=== PATIENT | female | born 1980 | race Caucasian/White ===

== ENCOUNTER → 2019-07-09 08:10 | Outpatient (CLI) | payer OTHER, SELFPAY ==
--- NOTE | ~2019-07-09 | US_ITS ---
EXAMINATION: US transvaginal DATE: 07/09/2019 08:32 INDICATION: Right lower quadrant pain TECHNIQUE: Multiple endovaginal sonographic images of the pelvis were obtained. COMPARISON: 07/23/2018 FINDINGS: The uterus measures 7.4 x 3.7 x 5.1 cm. The endometrial complex measures 11 mm. The right o vary measures 1.3 x 1.5 x 1.5 cm. The left ovary measures 4.9 x 3.5 x 4.1 cm. There is a 2.6 x 2.4 x 2.5 cm anechoic and hypoechoic lesion of the left ovary with no internal vascularity, most consistent with a hemorrhagic cyst. There is normal vascular flow in the ovaries. There is no free fluid in the pelvis. IMPRESSION: 1. No sonographic correlate for the patient's symptoms. Reviewed, dictated and finalized at location A. WORKER
== END ==
PROVIDERS: Visit Provider Obstetrics & Gynecology
DX: N83.202 Unspecified ovarian cyst, left side (principal); R10.31 Right lower quadrant pain
CPT/HCPCS: 76830

== ENCOUNTER 2019-07-29 11:50 | Outpatient (CLI) | payer OTHER, SELFPAY ==
--- NOTE | ~2019-07-29 | MMUS_ITS ---
CORRECTED REPORT MM diagnostic RT added to report. 08/02/19 sef EXAMINATION: MM screen RT diag LT w lakeisha, US breast BI complete, MM diagnostic RT HISTORY: Left breast lump TECHNIQUE: ML, MLO and cc 3-D full-field and spot tomosynthesis images of both breasts were performed and synthetic 2-D images were generated. CAD analysis was submitted and interpreted. High resolution bilateral complete breast ultrasound was performed. COMPARISON: None BREAST PARENCHYMAL COMPOSITION: The breasts are heterogeneously dense, which may obscure small masses. FINDINGS: MAMMOGRAPHIC FINDINGS: There is an approximately 2 cm mass in the upper outer quadrant of the left breast. Additional bilateral breast masses may be present are partially obscured by surrounding heterogeneously dense stroma. Bilateral complete breast ultrasound examination therefore was performed. ULTRASOUND: Very dense breast tissue is noted sonographically. Right breast 9:00 5 cm from nipple: 6 x 6 x 9 mm sonolucency with through transmission posterior enhancement, consistent with simple cyst Left breast 2-3:00 6 7 m from nipple: Circumscribed parallel hypoechoic solid lesion measuring 18.5 x 12 x 18 mm, with through transmission, posterior enhancement, likely a benign fibroadenoma. No suspicious solid lesion or shadowing of either breast is evident sonographically. IMPRESSION: 1. Likely benign 18.5 x 12 x 18 mm left breast fibroadenoma at 2-3:00 2. 6 month diagnostic left mammogram and targeted left breast ultrasound follow- up are recommended. BI-RADS category 3, probably benign findings. Reviewed, dictated and finalized at location A. INE OVERHAULER MTDD IMPRESSION: 1. Likely benign 18.5 x 12 x 18 mm left breast fibroadenoma at 2-3:00 2. 6 month diagnostic left mammogram and targeted left breast ultrasound follow -up are recommended. BI-RADS category 3, probably benign findings.
== END 2019-07-29 11:51 | disposition home or self-care (01) ==
PROVIDERS: PCP Family Medicine; Visit Provider Obstetrics & Gynecology
DX: Z12.31 Encounter for screening mammogram for malignant neoplasm of breast (principal); N63.20 Unspecified lump in the left breast, unspecified quadrant; R92.8 Other abnormal and inconclusive findings on diagnostic imaging of breast
CPT/HCPCS: 76641; 77063; 77065; 77067

== ENCOUNTER 2020-02-21 10:59 | Outpatient (CLI) | payer OTHER, SELFPAY ==
--- NOTE | ~2020-02-21 | MMUS_ITS ---
EXAMINATION: MM diagnostic gary LT w lakeisha, US breast LT limited HISTORY: Six-month follow-up for probably benign left breast mass TECHNIQUE: Craniocaudal, mediolateral, and mediolateral oblique 3-D tomosynthesis images of the left breast were performed and synthetic 2-D images were generated. CAD analysis was submitted and interpr eted. High resolution limited left breast ultrasound was performed. COMPARISON: 07/29/2019 BREAST PARENCHYMAL COMPOSITION: The breasts are heterogeneously dense, which may obscure small masses . FINDINGS: MAMMOGRAPHIC FINDINGS: There is a 2.8 cm obscured equal density mass in the middle/posterior third of the outer breast at th e 2:00 location 5 cm from the nipple which previously measured 2.2 cm. In addition, there is a 2.5 cm oval, obscured mass more medially in the breast at the 2:00 location 6 cm from the nipple. No suspic ious architectural distortion or calcification are identified. ULTRASOUND: There is a 2.8 x 1.5 cm oval, circumscribed, parallel, hypoechoic mass at the 2:00 location 5 cm from the nipple which is increased in size, previously measuring 2 cm. There is a 2.4 cm cyst at the 2:00 location near the nipple. Also seen are cysts measuring up to 7 mm at the 1:00 location near the nip ple. IMPRESSION: 1. 2.8 cm left breast mass with interval enlargement. 2. Ultrasound-guided biopsy is recommended. BI-RADS category 4, suspicious findings. Reviewed, dictated and finalized at location A. IMPRESSION: 1. 2.8 cm left breast mass with interval enlargement. 2. Ultrasound-guided biopsy is recommended. BI-RADS category 4, suspicious findings.
== END 2020-02-21 11:00 | disposition home or self-care (01) ==
PROVIDERS: Visit Provider Obstetrics & Gynecology
DX: R92.8 Other abnormal and inconclusive findings on diagnostic imaging of breast (principal)
CPT/HCPCS: 76642; 77061; 77065; G0279

== ENCOUNTER → 2022-07-17 07:43 | Outpatient (CLI) | payer OTHER, SELFPAY ==
--- NOTE | ~2022-07-17 | XR_ITS ---
XR_[id number]_CR 07/17/2022 08:16 Indication: Neck pain. Procedure: 3 views of the cervical spine Comparison: No prior studies for comparison. Findings: Normal cervical alignment. T1 not well visualized on the lateral view. No fracture or traum atic malalignment. No prevertebral soft tissue swelling. Odontoid process is normal. Lung apices are unremarkable. Impression: 1: No significant abnormality of the cervical spine. Reviewed, dictated and finalized at location L. NG END TRIMMER Impression: 1: No significant abnormality of the cervical spine.
== END ==
DX: G44.219 Episodic tension-type headache, not intractable (principal); M54.2 Cervicalgia
CPT/HCPCS: 72040

== ENCOUNTER 2022-07-31 07:57 | Outpatient (CLI) | payer OTHER, SELFPAY ==
--- NOTE | ~2022-07-31 | MM_ITS ---
EXAMINATION: MM screening [facility] BI w lakeisha HISTORY: Screening mammogram TECHNIQUE: Craniocaudal and mediolateral oblique 3-D tomosynthesis images were obtained and synthetic 2-D images were generated. CAD analysis was submitted and interpreted. COMPARISON: 02/21/2020, 07/29/2019 BREAST PARENCHYMAL COMPOSITION: The breasts are heterogeneously dense, which may obscure small masses . FINDINGS: RIGHT BREAST: There is an obscured mass in the middle third of the central breast. LEFT BREAST: There is a stable 3 cm mass in the upper outer quadrant of the breast. No suspicious mas s, calcification, or architectural distortion are identified to suggest malignancy. There has been no suspicious interval change. IMPRESSION: 1. Right breast mass. 2. Additional mammographic views and possible breast ultrasound are recommended. BI-RADS Category 0: Incomplete: Needs additional imaging evaluation. Reviewed, dictated and finalized at location A. R CUTTING MACHINE OPERATOR IMPRESSION: 1. Right breast mass. 2. Additional mammographic views and possible breast ultrasound are recommended . BI-RADS Category 0: Incomplete: Needs additional imaging evaluation.
== END 2022-07-31 07:58 | disposition home or self-care (01) ==
PROVIDERS: Visit Provider Obstetrics & Gynecology Gynecology
DX: Z12.31 Encounter for screening mammogram for malignant neoplasm of breast (principal); R92.8 Other abnormal and inconclusive findings on diagnostic imaging of breast
CPT/HCPCS: 77063; 77067

== ENCOUNTER 2022-08-19 11:33 | Outpatient (CLI) | payer OTHER, SELFPAY ==
--- NOTE | ~2022-08-19 | MMUS_ITS ---
EXAMINATION: MM diagnostic gary RT w lakeisha, US breast RT complete HISTORY: Follow-up right breast mass TECHNIQUE: Additional 3-D tomosynthesis images of the right breast were performed and synthetic 2-D i mages were generated. CAD analysis was submitted and interpreted. High resolution complete right [address] ultrasound was performed. COMPARISON: Comparison to multiple prior studies sequentially, with oldest reviewed study dated 10/2019. BREAST PARENCHYMAL COMPOSITION: The breasts are heterogeneously dense, which may obscure small masses FINDINGS: MAMMOGRAPHIC FINDINGS: There are ill-defined masses located centrally in the right breast, obscured by overlying dense fibro glandular tissue. There are no suspicious calcifications or architectural distortion. ULTRASOUND: Complete US of all 4 quadrants of the right breast and retroareolar region was reviewed. There are mu ltiple cysts in the right breast at 10-12:00, 1 cm from the nipple, 7:00, 2 cm from the nipple and 9: 00, 3 cm from the nipple. The largest is located at T10-12 o'clock measuring 6.2 cm. No suspicious ma sses to suggest malignancy. IMPRESSION: 1. Multiple simple cysts of the right breast corresponding to the masses seen on mammography, largest measuring 6.2 cm. 2. Routine yearly screening mammogram and regular clinical breast examination are recommended. BI-RADS Category 2: Benign finding(s). Reviewed, dictated and finalized at location A. IMPRESSION: 1. Multiple simple cysts of the right breast corresponding to the masses seen o n mammography, largest measuring 6.2 cm. 2. Routine yearly screening mammogram and regular clinical breast examination a re recommended. BI-RADS Category 2: Benign finding(s).
== END 2022-08-19 11:34 | disposition home or self-care (01) ==
PROVIDERS: Visit Provider Obstetrics & Gynecology Gynecology
DX: R92.8 Other abnormal and inconclusive findings on diagnostic imaging of breast (principal); N60.11 Diffuse cystic mastopathy of right breast
CPT/HCPCS: 76641; 77061; 77065; G0279

== ENCOUNTER → 2022-08-25 11:37 | Outpatient (CLI) | payer OTHER, SELFPAY ==
--- NOTE | ~2022-08-25 | US_ITS ---
EXAMINATION: US abdomen complete DATE: 08/25/2022 12:09 INDICATION: Unspecified abdominal pain TECHNIQUE: Multiple grayscale and Doppler ultrasound images of the abdomen were obtained. COMPARISON: None available FINDINGS: The head and body of the pancreas are normal. The pancreatic tail is obscured by bowel gas. The liver is normal with normal echogenicity and echotexture. No surface nodularity. Normal hepatope marine flow in the main portal vein. The gallbladder is normal with no abnormal wall thickening, pericho lecystic fluid or stones. The normal common bile duct measures 4 mm. There was no sonographic Anand sign. The visualized portions of the aorta and inferior vena cava are normal. The spleen is normal in appearance and measures 8.7 cm. The right kidney measures 8.7 x 3.2 x 5.3 cm. The left kidney measures 9 x 5.1 x 6.3 cm. The kidneys demonstrate normal parenchymal echogenicity. There is no hydronephrosis. IMPRESSION: 1. No sonographic correlate for the patient's symptoms. Reviewed, dictated and finalized at location B.
== END ==
PROVIDERS: PCP Family Medicine; Visit Provider Physician Assistant
DX: R10.9 Unspecified abdominal pain (principal)
CPT/HCPCS: 76700

== ENCOUNTER → 2022-10-16 10:16 | Outpatient (CLI) | payer OTHER, SELFPAY ==
--- NOTE | ~2022-10-16 | US_ITS ---
Pelvic ultrasound. Clinical History: Pelvic pain Technique: Realtime transabdominal scanning of the pelvis was performed. Color flow Doppler and Doppl er spectral analysis were performed. Findings: The uterus is anteverted. The endometrial stripe has a thickness of 5 mm. No focal mass is identified. The right ovary measures 1.4 x 1.9 x 2.3 cm. No significant right ovarian or adnexal mass is seen. The left ovary measures 1.9 x 1.8 x 2.1 cm. No significant left ovarian or adnexal mass is seen. Vascular flow present in both ovaries on Doppler spectral analysis. There is no evidence of free fluid in the cul de sac. Impression: Unremarkable pelvic ultrasound. Reviewed, dictated and finalized at location . Impression: Unremarkable pelvic ultrasound.
== END ==
PROVIDERS: PCP Advanced Practice Midwife; Visit Provider Advanced Practice Midwife
DX: R10.2 Pelvic and perineal pain (principal)
CPT/HCPCS: 76856

== ENCOUNTER → 2023-05-13 13:16 | Outpatient (CLI) | payer OTHER, SELFPAY ==
--- NOTE | ~2023-05-13 | US_ITS ---
EXAMINATION: US pelvic complete DATE: 05/13/2023 13:33 INDICATION: Abnormal uterine bleeding TECHNIQUE: Multiple transabdominal sonographic images of the pelvis were obtained. COMPARISON: 10/16/2022 FINDINGS: The uterus measures 9.7 x 5.1 x 5.4 cm. The endometrial complex measures 16 mm. The right o vary measures 4.0 x 1.7 x 2.8 cm. The left ovary measures 2.5 x 2.2 x 3.3 cm. There is normal vascula r flow in the ovaries. There is no free fluid in the pelvis. IMPRESSION: 1. No sonographic correlate for the patient's symptoms. Reviewed, dictated and finalized at location B. BOX TENDER
== END ==
PROVIDERS: PCP Nurse Practitioner; Visit Provider Nurse Practitioner
DX: N93.8 Other specified abnormal uterine and vaginal bleeding (principal)
CPT/HCPCS: 76856

== ENCOUNTER 2023-06-29 00:12 | Day surgery (SDC) | payer OTHER, SELFPAY ==
[2023-06-17 11:23] VITALS: BMI 31.7
--- NOTE | 2023-06-17 11:27 | PC.NURSE ---
Report to the Outpatient Waiting Room, entrance under the green pavilion located off [facility], at time 0615 on date 06/29/23. Planned Procedure Time: 0815. Time changes happen often and if your time is changed the preop area will call you the afternoon before. - You and your visitor will be asked to self-screen and do not enter if you have any COVID symptoms. - A mask is optional within the hospital at this time. Patients may have clear liquids (water, carbonated beverages, clear teas, apple juice) until 3 hours prior to surgery with a maximum of 20 ounces. - No food from midnight until time of surgery Take the following medications with a SIP of water the morning of surgery: LEVOTHYROXINE DO NOT STOP ANY OF YOUR OTHER PRESCRIPTION MEDICATIONS PRIOR TO SURGERY ?EXCEPT THE FOLLOWING Medications to discontinue per physician: N/A Date to take last dose: N/A Please no make-up, nail greek, hairspray, perfume, deodorant, or body powder the day of surgery. No jewelry (including any body piercings) or valuables the day of surgery, leave them at home. Please take a shower or bath the night before, or the morning of, surgery with an antibacterial soap. Wear comfortable, loose fitting clothing. - Jewelry must be removed prior to entering the operating room. Rings and piercings that are not removed may be cut off. - The hospital will not accept responsibility for valuables. - Please leave all valuables, including medications, at home the day of surgery. If you are going home after surgery, a licensed van driver helper must drive you home. - NO public transportation without another adult if you receive anesthesia. - We recommend that an adult stay with you for 24 hours following discharge. - We also recommend that you do not drive, make important decision, drink alcoholic beverages, or take any drugs that were not prescribed by your health care provider for at least 24 hours after your discharge time. Follow any additional instructions given to you from your surgeon. If you or anyone in your household have experienced Covid symptoms in the past week, please notify your surgeon or the nurse liaison at the phone number below for possible testing. Telephone instructions given to PT - KEVIN EDUARDO and asked if any additional questions and then verbalized understanding. Patient advised to call surgeon office or pre surgery nurse liaison [phone] if any additional questions.
[2023-06-29 06:29] VITALS: BP 117/62; PULSE 73; RESP 20; TEMP 36.2; O2SAT 100
[2023-06-29] MEDS: ACETAMINOPHEN 500 MG TABLET 1000 MG PO (06:54)
[2023-06-29] MEDS: LACTATED RINGERS 1,000 ML 30 ML IV CONT (07:00)
--- NOTE | 2023-06-29 07:22 | WPDHPUPDATE1 ---
History and Physical Update Update Date/Time: 06/29/23 07:22 History and Physical has been reviewed, including an updated exam of the patient. There are NO changes in the patient's condition. Risks, benefits, and alternatives have been discussed and questions answered. Patient agrees to proceed with procedure.
--- NOTE | 2023-06-29 07:22 | PM.HPGS ---
History of Present Illness History of Present Illness Consent: Risks, benefits, and alternatives have been discussed and questions answered. Patient agrees to proceed with procedure. Chief complaint: abn uterine bleeding Narrative: Bela Graves is a 42 year old female with a 1 year history of irregular cycles occurring every 15 to 37 days. Patient also has had prolonged bleeding with a to 16 days of bleeding. It was recommended to undergo D&C hysteroscopy for further evaluation. Pelvic ultrasound and labs were normal. Risks of surgery were discussed including infection, bleeding, perforation, and possible pathology. Patient voices understanding and agrees to proceed. Review of Systems Review of Systems: not repeated day of surgery; patient states no changes in status PMFSH Past Medical History Medical History (Updated 06/29/23 @ 07:25 by Josefina Berrios MD) Hypothyroidism (normal spontaneous vaginal delivery) x2 Surgical History Surgical History (Updated 06/29/23 @ 07:24 by Josefina Berrios MD) History of breast biopsy 2020 benign History of lumpectomy left 05/14 benign Social History Social History Smoking status: Never smoker Second hand tobacco smoke exposure: No Alcohol intake: current Alcohol use details: RARE Substance use: never Substance use type: does not use Lack of Transportation: No Lack of Food: Never True Current Housing: I Have Housing Concerned About Future Housing: No Difficulty Paying Gas/Electric Bills: No Difficulty Paying for Meds: No Currently Unemployed: No Education: Bachelor's Degree Difficulty w/ Childcare or Family Care: No Living arrangements: with family Spiritual care concerns: No Meds Home Medications and Allergies Home Medications Medication Instructions Recorded Confirmed Type levothyroxine 25 mcg tablet 25 mcg PO DAILY #90 tabs 09/29/22 06/29/23 Rx (Synthroid) Allergies Allergy/AdvReac Type Severity Reaction Status Date / Time No Known Allergies Allergy Verified 06/29/23 06:53 Vital Signs Vital Signs - 24 hr 06/29/23 06:29 Temperature 97.2 F L Pulse Rate 73 Respiratory Rate 20 Blood Pressure 117/62 Pulse Oximetry 100 Oxygen Delivery Room Air Exam Const: General: healthy appearing and alert Orientation/consciousness: patient oriented x3 Resp: Effort & Inspection: normal respiratory effort GI: GI Palp: Yes Soft to palpation, No Tenderness to palpation present (GI) and No Palpable mass present : External Female Exam: normal external appearance Speculum Exam - Vagina: normal appearance of the vagina and normal vaginal discharge Speculum Exam - Cervix: normal appearance of the cervix Bimanual exam- vagina & uterus: uterine size normal and consistency normal Bimanual Exam- Adnexa, other: normal adnexae and No adnexal tenderness Neuro: General: patient oriented x3 Assessment and Plan Assessment and plan (1) Menorrhagia: Code(s): N92.0 - Excessive and frequent menstruation with regular cycle Status: Acute Assessment and Plan: plan to proceed with D&C hysteroscopy
--- NOTE | 2023-06-29 07:24 | WPDANESEPPF ---
Anes - Initial Pre Proc Eval Procedure: Operation Date: 06/29/23 08:15 Proposed Procedures p Hysteroscopy, Dilation and Curettage - Josefina Berrios MD Date/Time: 06/29/23 07:24 Surgeon: Josefina Berrios MD Pre Op Diagnosis: abn uterine bleeding Patient Data Age: 42 Gender: F Height: 1.63 m Weight: 87 kg Last Vital Signs Temp 36.2 C L 06/29/23 06:29 Pulse 73 06/29/23 06:29 Resp 20 06/29/23 06:29 BP 117/62 06/29/23 06:29 Pulse Ox 100 06/29/23 06:29 O2 Del Method Room Air 06/29/23 06:29 Allergies Allergy/AdvReac Type Severity Reaction Status Date / Time No Known Allergies Allergy Verified 06/29/23 06:53 Home Medications Medication Instructions Recorded Confirmed Type levothyroxine 25 mcg tablet 25 mcg PO DAILY #90 tabs 09/29/22 06/29/23 Rx (Synthroid) Patient hx anesthesia problems: none Family hx anesthesia problems: none Results Review: All pre-operative results and documents have been reviewed as part of the pre-operative evaluation. [facility] Past Medical History Medical History Hypothyroidism Surgical History Surgical History (Updated 06/29/23 @ 07:24 by Josefina Berrios MD) History of breast biopsy 2020 benign History of lumpectomy left 05/14 benign Social History Social History Smoking status: Never smoker Second hand tobacco smoke exposure: No Alcohol intake: current Alcohol use details: RARE Substance use: never Substance use type: does not use Lack of Transportation: No Lack of Food: Never True Current Housing: I Have Housing Concerned About Future Housing: No Difficulty Paying Gas/Electric Bills: No Difficulty Paying for Meds: No Currently Unemployed: No Education: Bachelor's Degree Difficulty w/ Childcare or Family Care: No Living arrangements: with family Spiritual care concerns: No Anes - Eval Final PreProcedure Day of Procedure 06/29/23 07:24 Patient weight: obese Heart: regular rate and rhythm Lungs: clear to auscultation Airway: Mallampati scale class II Neurological: alert and oriented Last oral intake: >/= 8 hours ASA classification: II Emergent: no Anesthetic plan: proceed Anesthesia type and monitoring: general GIVS and standard monitoring Results Review: All pre-operative results and documents have been reviewed as part of the pre-operative evaluation. Informed Consent: The patient's anesthetic plan and its attendant risks and benefits were discussed with the patient/family/POA. Questions were solicited and answers provided to the satisfaction of the patient/family/POA.
[2023-06-29] MEDS: KETOROLAC 15 MG/ML VIAL (*BKC) IV PUSH (08:15)
[2023-06-29 08:33] VITALS: BP 109/60; PULSE 70; RESP 16; O2SAT 96
--- NOTE | 2023-06-29 08:37 | P.OP_ITS ---
Procedure Note - Detailed Date of Procedure 06/29/23 Pre-op Diagnosis menorrhagia Post-op Diagnosis Same Procedure Performed D&C hysteroscopy Surgeon Josefina Berrios MD Anesthesia MAC Findings The uterus sounds to 8.5cm and appears grossly normal. Description of Procedure The patient is taken to the operating room and placed under anesthesia in the dorsal lithotomy position. She was prepped and draped in usual sterile fashion. [place] speculum was placed in the vagina and the cervix grasped on the anterior lip with a tenaculum. The uterus is sounded to 8.5cm. The hysteroscope was placed and with no abnormalities noted it is removed. The OO sharp curette is used to curette the endometrium until a good uterine cry was noted in all areas. Instruments were then removed. Sponge, needle, and instrument counts are correct per the OR staff. The patient is taken to the recovery room in stable condition. Estimated Blood Loss 5 Drains No Packing No Pathology Yes ( Endometrial curettings) Complications No immediate complications Condition Stable Disposition PACU
[2023-06-29 09:00] VITALS: BP 100/52; PULSE 55; RESP 20
[2023-06-29 09:30] VITALS: BP 114/58; PULSE 62; RESP 20
== END 2023-06-29 09:37 | disposition home or self-care (01) ==
PROVIDERS: PCP Family Medicine; Visit Provider Obstetrics & Gynecology Gynecology
PROC: 0U5B8ZZ Destruction of Endometrium, Via Natural or Artificial Opening Endoscopic (ICD-10-PCS; CPT 58563; principal; 2023-06-29 08:15)
DX: N92.0 Excessive and frequent menstruation with regular cycle (principal); E03.9 Hypothyroidism, unspecified; E66.9 Obesity, unspecified; Z68.32 Body mass index [BMI] 32.0-32.9, adult; Z98.890 Other specified postprocedural states
CPT/HCPCS: 58558; 88305; A9270; J1100; J1885; J2250; J2405; J2704; J3010; J7120

== ENCOUNTER 2023-10-14 10:34 | Outpatient (CLI) | payer OTHER, SELFPAY ==
--- NOTE | ~2023-10-14 | MMUS_ITS ---
EXAMINATION: MM diagnostic gary BI w lakeisha, US breast BI complete HISTORY: Palpable left breast lump TECHNIQUE: Additional 3-D tomosynthesis images of the breasts were performed and synthetic 2-D images were generated. CAD analysis was submitted and interpreted. High resolution complete bilateral breas t ultrasound was performed. COMPARISON: Comparison to multiple prior studies sequentially, with oldest reviewed study dated 10/2019. BREAST PARENCHYMAL COMPOSITION: Dense: The breasts are heterogeneously dense, which may obscure small masses FINDINGS: MAMMOGRAPHIC FINDINGS: There are developing centrally located bilateral breast masses which are obscured by dense fibroglan dular tissue. There are no suspicious calcifications or focal architectural distortion. ULTRASOUND: Complete bilateral US of all 4 quadrants of the breasts and retroareolar region was reviewed. Multipl e bilateral breast cysts are identified corresponding to the mammographic abnormalities. Largest righ t cyst measures 5.1 cm at 12:00, 1 cm from the nipple. Largest left cyst measures 3.5 cm at 1:00 near the nipple. IMPRESSION: 1. No evidence for malignancy in either breast. Benign findings. 2. Routine yearly screening mammogram and regular clinical breast examination are recommended. BI-RADS Category 2: Benign finding(s). Reviewed, dictated and finalized at location A. IMPRESSION: 1. No evidence for malignancy in either breast. Benign findings. 2. Routine yearly screening mammogram and regular clinical breast examination a re recommended. BI-RADS Category 2: Benign finding(s).
== END 2023-10-14 10:35 | disposition home or self-care (01) ==
LOC: ANHIMG 10:36
PROVIDERS: PCP Family Medicine; Visit Provider Obstetrics & Gynecology Gynecology
DX: N63.20 Unspecified lump in the left breast, unspecified quadrant (principal)
CPT/HCPCS: 76641; 77062; 77066; G0279

== ENCOUNTER 2025-01-24 14:46 | Outpatient (CLI) | payer OTHER, SELFPAY ==
--- NOTE | ~2025-01-24 | MM_ITS ---
EXAMINATION: MM screening [facility] BI w [facility] HISTORY: Screening TECHNIQUE: Craniocaudal and mediolateral oblique 3-D tomosynthesis images were obtained and synthetic 2-D images were generated. CAD analysis was submitted and interpreted. COMPARISON: Mammogram 10/14/2023; breast ultrasound 10/14/2023; mammogram 07/31/2022 BREAST PARENCHYMAL COMPOSITION: The breasts are heterogeneously dense, which may obscure small masses. FINDINGS: There is no evidence of suspicious mass, calcification, or architectural distortion to suggest malignancy. There has been no suspicious interval change. IMPRESSION: 1. No mammographic evidence of malignancy. Recommend routine screening mammography in one year. BI-RADS Category 2: Benign finding(s) Reviewed, dictated and finalized at location Q. IMPRESSION: 1. No mammographic evidence of malignancy. Recommend routine screening mammogra phy in one year. BI-RADS Category 2: Benign finding(s)
--- OUTSIDE RECORDS SUMMARY | 2025-01-24 14:58 | XMS_ITS | Clinical Summary ---
Author Organization [facility] Physician Office Building [address] [place] [address] Care Team Providers Care Deputy Administrator Name Role Phone Malika Chamorro MD Primary Care Provider [phone] Allergies Active Allergy Reactions Criticality Noted Date Comments Dextromethorphan Rash Medium Medications Synthroid 25 mcg tabletIndicatio ns:hypothyroidi sm Take 1 tablet (25 mcg total) by mouth professional services specialist before breakfast 0 Active cholecalciferol (Vitamin D3) 5,000 unit tabletIndicatio ns:Vitamin D Deficiency Take 1 tablet (5,000 Units total) by mouth every morning Active vit B complex no.12/niacin,B3 , (VITAMIN B COMPLEX NO.12-NIACIN ORAL)Indication s:supplement Take 5,000 mcg by mouth every morning Active ibuprofen (ADVIL,MOTRIN) 200 mg tab/cap Take 400 mg by mouth every 6 (six) hours as needed for pain Active sodium chloride (OCEAN) 0.65 % nasal spray Administer 1 spray into each nostril as needed for congestion or rhinitis Active UNABLE TO FINDIndications :allergies Take 1 each by mouth daily as needed Med Name: Allevert Active HYDROcodone-akash taminophen (NORCO) 5-325 mg per tabletIndicatio ns:Pain Take 1 tablet by mouth every 6 (six) hours as needed for pain 5 tablet 1 Active Additional Information Patient not taking.Reported on 02/09/2024 Xulane 150-35 mcg/[address] ONE PATCH ON SKIN ONCE WEEKLY X 3 WEEKS DIRECTED 4 Active Active Problems Problem Noted Date Diagnosed Date Abnormal mammogram of left breast 03/16/2020 Left breast mass 03/16/2020 Lymphocytic thyroiditis 10/05/2013 Overview (08/29/2016): CHR LYMPHOCYT THYROIDIT Hypoglycemia 09/27/2009 Overview (08/29/2016): HYPOGLYCEMIA NOS Vitamin D deficiency 04/05/2009 Overview (08/29/2016): VITAMIN D DEFICIENCY NOS 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 (08/28/2016): DISACCHARIDASE DEF/MALAB 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 (08/29/2016): DIS AMINO-ACID METAB NOS Surgical History Surgery Date Site/Laterality Comments WISDOM TOOTH EXTRACTION BREAST BIOPSY 03/29/2020 Left FA vs phyllodes Medical History Medical History Date Comments Disorder of thyroid Thyroid dise ase Hypothyroid PONV (postoperative nausea and vomiting) with medical procedures/needles Family History Medical History Relation Name Comments Diabetes type II Father Diabetes -T ype II; Kidney cancer Father's Brother Anesthesia problems Neg Hx Relation Name Status Comments Father Father's Brother Other Social History Tobacco Use Types Packs/Day Years Used Date Smoking Tobacco: Never Smokeless Tobacco: Never Tobacco Cessation:Counseling Given: Not Answered Alcohol Use Standard Drinks/Week Comments No 0 (1 standard drink = 0.6 oz pur e alcohol) AUDIT-C Answer Date Recorded Q1: How often do you have a drink containing alc ohol? Monthly or less 05/02/2021 Q2: How many drinks containi ng alcohol do you have on a typical day when you are drinking? 1 or 2 05/02/2021 Q3: How often do you have si x or more drinks on one occasion? 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 Gender Identity Not on file Sexual Orientation Not on file Obstetrics History Last Filed Vital Signs Vital Sign Reading Time Taken Comments Blood Pressure 120/84 02/09/2024 6:24 PM CDT Pulse 72 02/09/2024 6:24 PM CDT Temperature 36.9 C (98.5 F) 02/09/2024 6:24 PM CDT Respiratory Rate 12 02/09/2024 6:24 PM CDT Oxygen Saturation 96% 02/09/2024 6:24 PM CDT Inhaled Oxygen Concentration - - Weight 88.9 kg (196 lb) 02/09/2024 6:24 PM CDT Height 157.5 cm (5' 2) 02/09/2024 6:24 PM CDT Body Mass Index 35.85 02/09/2024 6:24 PM CDT Plan of Treatment Health Maintenance Due Date Last Done Comments Cervical Cancer Screening 1981 Hepatitis C Screening 1981 DTaP/Tdap/Td Vaccine (1 - Tdap) 1992 Varicella Vaccines (1 of 2 - 13+ 2-dose series) 1994 Hepatitis B Screening 10/12/1999 Regular Well Visit/Exam 18-64 10/12/1999 HPV Vaccines (1 - 3-dose SCD M series) 2008 Depression Screening 06/08/2018 06/08/2017 Breast Cancer Screening-Mammogram 08/21/2021 08/21/2020 Covid-19 Vaccine (3 - 2023-2 5 season) 2024 09/27/2020, 09/06/2020 Influenza Vaccine (#1) 2025 Pneumococcal vaccine <65 Aged Out No longer eligible based on patient's age to complete this topic Procedures Procedure Name Priority Date/Time Associated Diagnosis Comments DIAGNOSTIC MAMMOGRAM BILATERAL W PAUL Schedule Routine, Read Routine (OP Routine) 08/21/2020 1:01 PM CDT Breast mass Abnormal findings on diagnostic imaging of breast from Last 3 Months or Most Recently Relevant to Health Maintenance Results * Diagnostic Mammogram Bilateral W Paul (08/21/2020 1:01 PM CDT) Anatomical Region Laterality Modality Breast Bilateral Mammography 08/21/2020 1:29 PM CDT Impressions 08/21/2020 1:29 PM CDT Biopsy-proven fibroadenoma within the left breast does not appear to be significantly changed in size when compared to the mammogram from 03/29/2020. This mass however does appear increased in size compared to the original mammogram from 07/29/2019. Decision to excise this mass should be based on clinical assessment given the pathology report. OVERALL FINAL ASSESSMENT: BI-RADS Category 2: Benign. 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 COMPARISON: Ultrasound from 02/21/2020 and mammogram from 02/21/2020, 03/29/2020 and 07/29/2019. TECHNIQUE: Full field digital mammographic views of BOTH breasts were performed, including computer aided detection (CAD) and BILATERAL digital breast tomosynthesis (DBT). Targeted left breast ultrasound BREAST PARENCHYMAL COMPOSITION: The breasts are extremely dense, which lowers the sensitivity of mammography. MAMMOGRAM FINDINGS: Gently lobulated mass within the left upper outer breast with biopsy site marker noted within it does not appear significantly changed in size when compared to the mammogram from 03/29/2020. There is a circumscribed oval mass immediately adjacent to it. There is no suspicious abnormality identified within the right breast. ULTRASOUND FINDINGS: Targeted ultrasound left breast demonstrates a gently lobulated solid mass left breast 2:00, 5 cm from the nipple. This currently measures 2.9 x 1.7 x 2 cm. Biopsy site marker is noted within this mass. Overall the size does not appear to be significantly changed compared to the previous ultrasound from 02/21/2020. There is a large simple cyst identified immediately adjacent to it which corresponds to the 2nd mass seen on mammogram. 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 COMPARISON: Ultrasound from 02/21/2020 and mammogram from 02/21/2020, 03/29/2020 and 07/29/2019. TECHNIQUE: Full field digital mammographic views of BOTH breasts were performed, including computer aided detection (CAD) and BILATERAL digital breast tomosynthesis (DBT). Targeted left breast ultrasound BREAST PARENCHYMAL COMPOSITION: The breasts are extremely dense, which lowers the sensitivity of mammography. MAMMOGRAM FINDINGS: Gently lobulated mass within the left upper outer breast with biopsy site marker noted within it does not appear significantly changed in size when compared to the mammogram from 03/29/2020. There is a circumscribed oval mass immediately adjacent to it. There is no suspicious abnormality identified within the right breast. ULTRASOUND FINDINGS: Targeted ultrasound left breast demonstrates a gently lobulated solid mass left breast 2:00, 5 cm from the nipple. This currently measures 2.9 x 1.7 x 2 cm. Biopsy site marker is noted within this mass. Overall the size does not appear to be significantly changed compared to the previous ultrasound from 02/21/2020. There is a large simple cyst identified immediately adjacent to it which corresponds to the 2nd mass seen on mammogram. IMPRESSION: Biopsy-proven fibroadenoma within the left breast does not appear to be significantly changed in size when compared to the mammogram from 03/29/2020. This mass however does appear increased in size compared to the original mammogram from 07/29/2019. Decision to excise this mass should be based on clinical assessment given the pathology report. OVERALL FINAL ASSESSMENT: BI-RADS Category 2: Benign. Electronically signed by: VIDYA BEGUM MD Ann Marie Browning NP IMG MAMMO PROCEDURES Fin al Result from Last 3 Months or Most Recently Relevant to Health Maintenance Insurance [facility] CIG[employer] CIGNA Care Teams Deputy Administrator Relationship Specialty Start Date End Date Malika Chamorro MD PCP - General 10/05/13
--- OUTSIDE RECORDS SUMMARY | 2025-01-24 14:58 | XMS_ITS | Clinical Summary ---
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 Gender Identity Not on file Sexual Orientation Not on file Plan of Treatment Health Maintenance Due Date Last Done Comments DTAP/TDAP/TD VACCINES (1 - Tdap) 2000 HEPATITIS B VACCINES (1 of 3 - 19+ 3-dose series) 09/23 HPV/Cotest (21-29) 2002 HPV VACCINES (1 - 3-dose SCDM series) 2008 CERVICAL CANCER SCREENING 10/12/2011 HPV/Cotest (30-65) 10/12/2011 PAP SMEAR 10/12/2011 BREAST CANCER SCREENING 2021 INFLUENZA VACCINE (#1) 2024 Insurance [facility] OPTIONS PPO [id number] Care Teams Host And Hostess Relationship Specialty Start Date End Date Kenneth Jaimes MD PCP - General Family Practice 03/12/12
--- OUTSIDE RECORDS SUMMARY | 2025-01-24 14:58 | XMS_ITS | Encounter Summary ---
Author Organization [facility] Address [address] [place] [address] Care Team Providers Care Pattern Developer Name Role Phone Unavailable Primary Care Provider Unavailabl e Encounter Details Date Type Department Care Team (Late st Contact Info) Description 03/10/2019 Lab Requisition [facility] DermPath Lab [address] [facility] [address] [facility] [place] [id number] Josefina Garcia DO [address] [facility] [address] [place] [address] Social History Tobacco Use Types Packs/Day Years Used Date Smoking Tobacco: Never Assessed Comments Unknown Sex and Gender Information Value Date Recorded Sex Assigned at Not on file Legal Sex Female 11:15 AM CDT Gender Identity Not on file Sexual Orientation Not on file documented as of this encounter Plan of Treatment Not on file documented as of this encounter Procedures Procedure Name Priority Date/Time Associated Diagnosis Comments DERMATOPATHOLOGY Routine 03/09/2019 12:0 0 AM CDT documented in this encounter Results * DERMATOPATHOLOGY (03/09/2019 12:00 AM CDT) Case Report Dermatopathology Report Case: [id number] Authorizing Provider: Josefina Garcia DO Collected: 03/09/2019 12:00 AM Ordering Location: [facility] DermPath Lab Received: 03/10/2019 06:48 AM Pathologist: Devin Reynoso MD Specimen: Skin, crown of scalp 9 11:40 AM CDT DERMATOPATHOLOGY LABORATORY Final Diagnosis Specimen A. SKIN, crown of scalp: INTRADERMAL MELANOCYTIC NEVUS (D22.4) 9 11:40 AM CDT DERMATOPATHOLOGY LABORATORY at 1140 CDT Clinical History IDN vs BCC. 11:40 AM CDT DERMATOPATHOLOGY LABORATORY Gross Description Specimen A: Received is one formalin filled container labeled with the patient's name and designated crown of scalp. The specimen consists of a shave measuring [id number]. Jar 0. 11:40 AM CDT DERMATOPATHOLOGY LABORATORY Microscopic Description Specimen A. SKIN, crown of scalp: There are nests of cytologically bland melanocytes within the dermis that mature with depth. 11:40 AM CDT DERMATOPATHOLOGY LABORATORY Disclaimer An external and internal positive and negative controls are appropriate for the histochemical, immunohistochemical and immunofluorescence stain(s) in this case (if any), except where stated explicitly. The performance characteristics of the stain(s) cited in this report were developed and its performance characteristic determined by the Dermatopathology Laboratory at [facility], directed by Dr. Tiarra Reynoso. These tests need not be, and therefore are not, approved by the [place] Food and Drug Administration. The tests are used for clinical purposes. Billing Codes Specimen Charges Stain Charges 50205 1 11:40 AM CDT DERMATOPATHOLOGY LABORATORY Embedded Images 11:40 AM CDT DERMATOPATHOLOGY LABORATORY Pathology/Cytolog y TISSUE SPECIMEN FROM SKIN / Unknown 03/09/2019 03/10/2019 6:48 AM CDT us Josefina Garcia DO LAB - PATHOLOGY/CYTOLOGY ORDERABLES Final Result DERMATOPATHOLOGY LABORATORY [facility] - Department of Dermatology [address] [place] [address] [address]th [address] Lab [address] [place], [place] [id number] [place] [address] documented in this encounter Visit Diagnoses Not on filedocumented in this encounter
--- OUTSIDE RECORDS SUMMARY | 2025-01-24 14:58 | XMS_ITS | Clinical Summary ---
Author Organization [facility] Address [address] [place] [address] Care Team Providers Care Retail Loss Prevention Specialist Name Role Phone Unavailable Primary Care Provider Unavailabl e Source Comments [facility],non-owned Affiliates and Associated Physician Practices is amultiple site organization consisting of ambulatory clinics and hospital sitesin [place], [place], [place] and [place]. This disclosure is being madepursuant to the Care Everywhere program and may not contain all information available regarding this patient. Last updated 18.[facility] Social History Tobacco Use Types Packs/Day Years Used Date Smoking Tobacco: Never Assessed Comments Unknown Sex and Gender Information Value Date Recorded Sex Assigned at Not on file Legal Sex Female 11:15 AM CDT Gender Identity Not on file Sexual Orientation Not on file Plan of Treatment Health Maintenance Due Date Last Done Comments LIPID TESTING 1981 MAMMOGRAM 1981 HIV SCREENING 1996 HEPATITIS C SCREENING 10/07/1999 DTAP/TDAP/TD VACCINES (1 - Tdap) 2000 HEPATITIS B VACCINE (1 of 3 - 19+ 3-dose series) 2000 PAP SMEAR 2002 HPV VACCINE (1 - 3-dose SCDM series) 2008 COVID-19 VACCINE ( - 2023-2 5 season) 2024 DEPRESSION SCREENING 05/25/2024 INFLUENZA VACCINE (#1) 2025 ZOSTER VACCINE (1 of 2) 10/12/2031 HIB VACCINE Aged Out No longer eligi ble based on patient's age to complete this topic MENINGOCOCCAL (Group B) VACC INE SHARED DECISION-MAKING Aged Out No longer eligibl e based on patient's age to complete this topic MENINGOCOCCAL GROUPS A/C/Y/W VACCINE Aged Out No longer eligible b ased on patient's age to complete this topic PNEUMOCOCCAL VACCINE Aged Out No long er eligible based on patient's age to complete this topic Insurance CIGNA CIGNA SELF PAY NO INSURANCE Member Subscriber Plan / Payer (Ef fective for All Dates) Name:Kevin Graves Member ID:Not on file Relation to Subscriber:Not on file Name:KEVIN GRAVES Subscriber ID:Not on file Address: [address] [place], [place] [address] Payer ID:Not on file Group ID:Not on file Type:Self Pay Address: [place], [place] CIGNA CIGNA SELF PAY NO INSURANCE Member Subscriber Plan / Payer (Ef fective for All Dates) Name:Kevin Graves Member ID:Not on file Relation to Subscriber:Not on file Name:KEVIN GRAVES Subscriber ID:Not on file Address: [address] [place], [place] [id number] Payer ID:Not on file Group ID:Not on file Type:Self Pay Address: [place], [place] CIGNA SELF PAY NO INSURANCE Member Subscriber Plan / Payer (Ef fective for All Dates) Name:Kevin Graves Member ID:Not on file Relation to Subscriber:Not on file Name:KEVIN GRAVES Subscriber ID:Not on file Address: [address] [place], [place] [id number] Payer ID:Not on file Group ID:Not on file Type:Self Pay Address: [place], [place]
== END 2025-01-24 14:47 | disposition home or self-care (01) ==
LOC: ANHFOHIMG 14:47
PROVIDERS: PCP Family Medicine; Visit Provider Obstetrics & Gynecology Gynecology
DX: Z12.31 Encounter for screening mammogram for malignant neoplasm of breast (principal)
CPT/HCPCS: 77063; 77067